=== PATIENT | female | born 2000 | race Asian ===

== ENCOUNTER 2021-09-21 14:57 | Inpatient (IN) | payer BC, OTHER ==
[~2021-09-21] VITALS: Ht 154.9 cm; Wt 63.5 kg
[2021-09-21 14:58] VITALS: BP 120/69
[2021-09-21 17:58] LABS: URINE BILIRUBIN NEGATIVE (Negative); URINE BLOOD 1+ (Negative); URINE COLOR YELLOW; URINE GLUCOSE-RANDOM* NEGATIVE (Negative); URINE KETONES 2+ (Negative); URINE NITRITE-REFLEX NEGATIVE (Negative); URINE PROTEIN (DIPSTICK) 2+ (Negative)
[2021-09-21 18:00] LABS: ABSOLUTE NEUTROPHILS 12.7 thou/uL (1.4-8.2); BASOPHILS 0.2 % (0.0-2.0); HEMATOCRIT 35.4 % (37.0-47.0); LYMPHOCYTES 4.3 % (24.0-44.0); MCH 28.6 pg (26.0-34.0); MCHC 33.9 g/dL (28.0-37.0); MCV 84.1 fL (80.0-100.0); MONOCYTES 7.1 % (1.0-8.0); PLATELET COUNT 207 thou/uL (150-400); POLYS 88.4 % (36.0-66.0); RBC 4.21 mil/uL (4.20-5.00); RDW 13.1 % (10.5-14.5); WBC 14.4 thou/uL (4.0-11.0)
[2021-09-21 18:01] LABS: URINE CLARITY HAZY; URINE LEUKOCYTES-REFLEX 3+ (Negative)
[2021-09-21 18:16] LABS: SQUAMOUS 0-3 Few /LPF (0-3); URINE RBC 3-10 Few /HPF (NONE SEEN); URINE WBC-REFLEX >25 Many /HPF (0-5)
[2021-09-21 18:17] LABS: BACTERIA-REFLEX >30 Many /HPF (None Seen); CASTS None Seen /LPF (None Seen); CRYSTALS None Seen /LPF (None Seen)
[2021-09-21 18:18] LABS: CALCIUM 9.2 mg/dL (8.5-10.1); CREATININE 0.9 mg/dL (0.6-1.0); POTASSIUM 3.4 mmol/L (3.5-5.1)
[2021-09-21 18:24] LABS: ALBUMIN 3.4 g/dL (3.4-5.0); TOTAL BILIRUBIN 0.7 mg/dL (0.2-1.0); TOTAL PROTEIN 8.1 g/dL (6.4-8.2)
[2021-09-22 00:46] LABS: HEMATOCRIT 33.5 % (37.0-47.0); MCH 28.5 pg (26.0-34.0); MCHC 32.9 g/dL (28.0-37.0); MCV 86.6 fL (80.0-100.0); RBC 3.87 mil/uL (4.20-5.00); RDW 13.1 % (10.5-14.5); WBC 12.4 thou/uL (4.0-11.0)
[2021-09-22 00:50] LABS: CALCIUM 7.9 mg/dL (8.5-10.1); CREATININE 0.7 mg/dL (0.6-1.0); MAGNESIUM 1.6 mg/dL (1.8-2.4); POTASSIUM 4.1 mmol/L (3.5-5.1)
--- NOTE | 2021-09-22 07:30 | EKG ---
[address] [address] ELECTROCARDIOGRAM REPORT Name: HADLEY SAUER Room #: 170-10 ADM IN M.R.#: [id number] Admission: 09/21/21 Attend Phys: Chace Rodriguez MD Discharge: Date of : 2 Report #: [id number] [facility] ED Test Date: 2021-09-21 Test Time: 17:00:47 Pat Name: HADLEY SAUER Department: Room: 170 Gender: F Indirect Sales Representative: JOURDAN : 2000 Requested By: Ahmet Larry Order Number: [id number] MD: Zac Pleitez Measurements Intervals [place] Rate: 128 P: 80 TX: 130 QRS: 69 QRSD: 72 T: 54 QT: 265 QTc: 387 Interpretive Statements Sinus tachycardia No previous ECG available for comparison Electronically Signed On 09-22-2021 7:30:28 [employer] by Zac Pleitez [email or web address] <ELECTRONICALLY SIGNED> By: Zac Pleitez MD, [facility] 09/22/21 0730 170 1700 Zac Pleitez MD, FACC /EPI
[2021-09-22 19:54] VITALS: BP 122/81
[2021-09-23 02:06] LABS: GLYCOHEMOGLOBIN (HGB A1C) 5.4 % (4.8-5.6)
[2021-09-23 03:36] VITALS: BP 132/74
[2021-09-23] MEDS ORDERED: CELEBREX 200 M200 M1 PO ×2 (09:13→11:48)
[2021-09-23] MEDS ORDERED: KEFLEX750 MG PO ×2 (09:13→11:48)
[2021-09-23 09:44] VITALS: BP 122/89
--- NOTE | 2021-09-23 12:15 | NUR ---
PT DISCHARGE INSTRUCTIONS PROVIDED SIGNED AND GIVEN TO THE HYDRAULIC OPERATOR AT THE TIME OF DISCHARGE ALL INFORMATIONS WERE PROVIDED BY THE RN AND TEACH BACK OF MEDICATION WAS RECEIVED. PT IS TO DIGITAL TRAFFIC COORDINATOR MEDS FROM [facility] THAN [facility] DUE TO AVAILABILITY OF MEDS, ISSUE WORKED ALONGSIDE WITH JOSHUA LINDSAY PT ALL BELONGINGS TAKEN BY HER AND MOM RN SIGNING OFF
[2021-09-23 15:20] VITALS: BP 122/89
== END 2021-09-23 15:20 | disposition home or self-care (01) | DRG 872 ==
LOC: ER 14:57 → EROBS 19:09
PROVIDERS: Emergency Medicine; Nurse Practitioner Family; ADMIT Hospitalist; ATTEND Hospitalist
DX: A41.9 Sepsis, unspecified organism (principal); N39.0 Urinary tract infection, site not specified; F17.210 Nicotine dependence, cigarettes, uncomplicated; R73.9 Hyperglycemia, unspecified; E87.6 Hypokalemia; Z20.822 Contact with and (suspected) exposure to COVID-19; Z82.49 Family history of ischemic heart disease and other diseases of the circulatory system